=== PATIENT | female | born 1950 | race Asian ===

== ENCOUNTER 2024-02-15 17:09 | Emergency (ER) | payer OTHER ==
[2024-02-15 17:15] VITALS: TEMP 98.7; BMI 32.2
[2024-02-15] MEDS ORDERED: ACETAMINOPHEN INJECTION 100 ML ONE (18:21)
[2024-02-15 18:23] LABS: BASO % 0.5 % (0-2.0); EOS % 2.1 % (0-4.5); HEMATOCRIT 34.5 % (32.4-45.2); HEMOGLOBIN 11.4 GM/dL (10.7-15.3); LYMPH % 50.6 % (8-40); MCHC 33.1 g/dl (32.0-36.0); MEAN CELL VOLUME 78.5 fl (80-96); MEAN PLT VOLUME 8.8 fl (7.5-11.1); MONO % 9.5 % (3.8-10.2); NEUT % 37.3 % (42.8-82.8); PLATELET COUNT 265 10^3/uL (134-434); RBC 4.39 M/mm3 (3.60-5.2); RDW 15.6 % (11.6-15.6); WHITE BLOOD COUNT 7.1 K/mm3 (4.0-10.0)
[2024-02-15 18:30] LABS: INR 0.92 (0.83-1.09); PROTHROMBIN TIME (PATIENT) 10.6 SEC (9.7-13.0)
[2024-02-15] MEDS: ACETAMINOPHEN 1000 MG/100 ML BAG IVPB ONE (18:31)
[2024-02-15 18:32] LABS: ACTIVATED PTT 31.6 SECONDS (25.2-36.5)
[2024-02-15 18:47] LABS: POTASSIUM 4.1 mmol/L (3.5-5.1)
[2024-02-15 18:49] LABS: CALCIUM 8.9 mg/dL (8.5-10.1)
[2024-02-15 18:50] LABS: ALBUMIN 3.7 g/dl (3.4-5.0); BLOOD UREA NITROGEN 13.3 mg/dL (7-18)
[2024-02-15 18:51] VITALS: BP 170/83; PULSE 61; RESP 20
[2024-02-15 18:53] LABS: CREATININE 0.8 mg/dL (0.55-1.3)
[2024-02-15 18:54] LABS: BILIRUBIN,TOTAL 0.2 mg/dL (0.2-1); TOT PROT 7.5 g/dl (6.4-8.2)
== END 2024-02-15 19:56 | disposition home or self-care (01) ==
LOC: JER 17:09
PROC: 3E033NZ Introduction of Analgesics, Hypnotics, Sedatives into Peripheral Vein, Percutaneous Approach (ICD-10-PCS; principal; 2024-02-15)
DX: I10 Essential (primary) hypertension (principal)
CPT/HCPCS: 36415; 71045-TC-FY; 80053; 83880; 84484; 85025; 85610; 85730; 93005; 93010; 99285-25; J0131